=== PATIENT | female | born 1975 | race Caucasian/White ===

== ENCOUNTER 2016-05-31 13:28 | Inpatient (IN) | payer OTHER ==
[2016-05-31 15:35] VITALS: BMI 36.8
--- NOTE | 2016-05-31 17:24 | HP ---
CIWA Score - CIWA Score Nausea/Vomitin-Mild Nausea/No Vomiting Muscle Tremors: 3 Anxiety: 4-Mod. Anxious/Guarded Agitation: 4-Moderately Restless Paroxysmal Sweats: 1-Minimal Palms Moist Orientation: 0-Oriented Tacttile Disturbances: 1-Very Mild Itch/Numbness Auditory Disturbances: 2-Mild Harshness/Frighten Visual Disturbances: 3-Moderate Sensitivity Headache: 0-None Present CIWA-Ar Total Score: 19 Admission ROS S - HPI Chief Complaint: withdrawal sx Allergies/Adverse Reactions: Allergies Allergy/AdvReac Type Severity Reaction Status Date / Time No Known Allergies Allergy Verified 05/31/16 16:24 History of Present Illness: 40 years old female with long history of alcohol nicotine dependence, on suboxone maintenance program x 4 months, health underwriter called [phone] verified with pharmacist Marcello 8-2 mg III sl daily, last dose today, 2005 mitro valve replacement has asthma and depression, is admitted to detox Exam Limitations: No Limitations - Ebola screening Have you traveled outside of the country in the last 21 days: No Have you had contact with anyone from an Ebola affected area: No Have you been sick,other than usual withdrawal symptoms: No Do you have a fever: No - Review of Systems Constitutional: Chills, Changes in sleep, Weight Stable EENT: reports: No Symptoms Reported Respiratory: reports: No Symptoms reported Cardiac: reports: No Symptoms Reported GI: reports: Diarrhea, Nausea, Poor Fluid Intake, Abdominal cramping : reports: Other (2007 kidney stone) Musculoskeletal: reports: Back Pain Integumentary: reports: No Symptoms Reported Neuro: reports: Tremors Endocrine: reports: No Symptoms Reported Hematology: reports: Blood Clots (mitroval replacement 2005), Easy Bleeding ( treated with coumadine) Psychiatric: reports: Judgement Intact, Orientated x3, Depressed Other Systems: Reviewed and Negative Patient History - Patient Medical History Hx Anemia: No Hx Asthma: Yes (Pt is on MDI) Hx Chronic Obstructive Pulmonary Disease (COPD): No Hx Cancer: No Hx Cardiac Disorders: Yes (Mitral valve prolapse sx in 1995) Hx Congestive Heart Failure: No Hx Hypertension: No Hx Hypercholesterolemia: No Hx Pacemaker: No HX Cerebrovascular Accident: Yes (2 strokes in past, 2011, 2003) Hx Seizures: No Hx Dementia: No Hx Diabetes: No Hx Gastrointestinal Disorders: No Hx Liver Disease: No Hx Genitourinary Disorders: No Hx Sexually Transmitted Disorders: No Hx Renal Disease (ESRD): No Hx Thyroid Disease: No Hx Human Immunodeficiency Virus (HIV): No Hx Hepatitis C: No Hx Depression: Yes Hx Suicide Attempt: Yes (15 years old cut left wrist + over dose) Hx Bipolar Disorder: No Hx Schizophrenia: No - Patient Surgical History Past Surgical History: Yes Hx Neurologic Surgery: No Hx Cataract Extraction: No Hx Cardiac Surgery: Yes (? , mvp, SCAR VERTICAL CENTRAL ANT CHEST WALL) Hx Lung Surgery: No Hx Breast Surgery: No Hx Breast Biopsy: No Hx Abdominal Surgery: No Hx Appendectomy: No Hx Cholecystectomy: No Hx Genitourinary Surgery: No Hx Section: No Hx Orthopedic Surgery: No Hx Hysterectomy: No Anesthesia Reaction: No - PPD History Previous Implant?: Yes Documented Results: Positive w/proof Implanted On Prior [facility] Admission?: No Date: 06/18/14 PPD to be Administered?: No - Reproductive History Patient is a Female of Child Bearing Age (11 -55 yrs old): Yes Last Menstrual Period: 05/30/16 Patient : No - Smoking Cessation Smoking history: Current every day smoker Have you smoked in the past 12 months: Yes Aproximately how many cigarettes per day: 20 Cigars Per Day: 0 Hx Chewing Tobacco Use: No Initiated information on smoking cessation: Yes 'Breaking Loose' booklet given: 05/31/16 - Substance & Tx. History Hx Alcohol Use: Yes Hx Substance Use: Yes Substance Use Type: Alcohol, Heroin, Marijuana Hx Substance Use Treatment: Yes - Substances Abused Alcohol Route: Oral Frequency: Daily Amount used: 6pk beer Age of first use: 11 Date of Last Use: 05/30/16 Marijuana/Hashish Route: Smoking Frequency: Daily Amount used: $40 Age of first use: 12 Date of Last Use: 05/31/16 Heroin Route: Inhalation Frequency: Daily Amount used: 5-7 bags Age of first use: 12 Date of Last Use: 05/30/16 Family Disease History - Family Disease History Family Disease History: Diabetes: Mother Admission Physical Exam BHS - Vital Signs Vital Signs: Vital Signs - 24 hr 05/31/16 15:33 Temperature 98.2 F Pulse Rate 79 Respiratory 20 Rate Blood Pressure 108/68 - Physical General Appearance: Yes: Appropriately Dressed, Moderate Distress, Obese, Tremorous, Irritable, Sweating, Anxious HEENTM: Yes: Hearing grossly Normal, Normal ENT Inspection, Normocephalic, Normal Voice Respiratory: Yes: Chest Non-Tender, Lungs Clear, Normal Breath Sounds, No Respiratory Distress, No Accessory Muscle Use Neck: Yes: Supple, Trachea in good position Breast: Yes: Breasts Symetrical Cardiology: Yes: Regular Rhythm, Regular Rate, S1, S2 Abdominal: Yes: Non Tender, Soft Genitourinary: Yes: Within Normal Limits Back: Yes: Normal Inspection Musculoskeletal: Yes: full range of Motion, Gait Steady, Back pain, Muscle Pain , Muscle weakness (left leg) Extremities: Yes: Normal Range of Motion, Non-Tender, Tremors Neurological: Yes: Fully Oriented, Alert, Motor Strength 5/5, Normal Response, Depressed Affect Integumentary: Yes: Warm Lymphatic: Yes: Within Normal Limits - Diagnostic (1) Asthma Current Visit: Yes Status: Acute Qualifiers: Asthma severity: mild persistent Asthma complication type: with status asthmaticus Qualified Code(s): J45.32 - Mild persistent asthma with status asthmaticus (2) Nicotine dependence Current Visit: Yes Status: Acute Qualifiers: Nicotine product type: cigarettes Substance use status: in withdrawal Qualified Code(s): F17.213 - Nicotine dependence, cigarettes, with withdrawal (3) Obesity Current Visit: Yes Status: Chronic Qualifiers: Obesity type: due to excess calories Obesity severity: morbid Qualified Code(s): E66.01 - Morbid (severe) obesity due to excess calories (4) Stroke Current Visit: Yes Status: Chronic Qualifiers: CVA mechanism: thrombosis Precerebral and cerebral artery: vertebral artery, right Qualified Code(s): 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 (5) Alcohol dependence with uncomplicated withdrawal Current Visit: Yes Status: Acute (6) S/P mitral valve repair Current Visit: Yes Status: Resolved Comment: 2006 (7) Positive PPD, treated Current Visit: Yes Status: Acute Comment: chest x ray pending (8) Use of cane as ambulatory aid Current Visit: Yes Status: Acute Comment: cane s/p stroke sequela 2011 Cleared for Admission [facility] - Detox or Rehab [facility] Level of Care: Medically Managed Detox Regimen/Protocol: Librium [facility] Breath Alcohol Content Breath Alcohol Content: 0 Urine Pregancy Test - Result Urine Test Results: Negative- NO Line Present Urine Drug Screen - Results Drug Screen Negative: No Urine Drug Screen Results: THC-Marijuana, OPI-Opiates
[2016-05-31] MEDS ORDERED: chlordiazePOXIDE HCL 25 MG CAPSULE PO PRN (17:32)
[2016-05-31] MEDS ORDERED: P-EPHED 60MG/TRIPROLIDI 2.5MG TABLET PO PRN (17:32)
[2016-05-31] MEDS ORDERED: NICOTINE POLACRILEX 4 MG GUM BC PRN (17:32)
[2016-05-31] MEDS ORDERED: hydrOXYzine PAMOATE 50 MG CAPSULE (FP) PO PRN (17:32)
[2016-05-31] MEDS ORDERED: guaiFENesin/D-METHORPHAN HB 10 ML UNIT-DOSE CUPS PO PRN (17:32)
[2016-05-31] MEDS ORDERED: MAG HYDROX/AL HYDROX/SIMETH 30 ML UNIT-DOSE CUP PO PRN (17:32)
[2016-05-31] MEDS ORDERED: IBUPROFEN 400 MG TABLET (FP) PO PRN (17:32)
[2016-05-31] MEDS ORDERED: MENTHOL/PHENOL 1 EACH UD MM PRN (17:32)
[2016-05-31] MEDS ORDERED: ACETAMINOPHEN 325 MG TABLET (FP) PO PRN (17:32)
[2016-05-31] MEDS ORDERED: LOPERAMIDE HCL 2 MG CAPSULE PO PRN (17:32)
[2016-05-31] MEDS ORDERED: MAGNESIUM CITRATE 300 ML BOTTLE PO PRN (17:32)
[2016-05-31] MEDS ORDERED: MAGNESIUM HYDROX 2400MG/30ML ORAL SUSPENSION 30 ML CUP PO PRN (17:32)
[2016-05-31] MEDS ORDERED: ALBUTEROL SO4 2.5/IPRATROPIUM 0.5 INH SOL 3 ML VIAL.NEB. NEB PRN (17:39)
[2016-05-31] MEDS ORDERED: ALBUTEROL SO4 6.7 GM HFA INHALER IH PRN (17:39)
[2016-05-31] MEDS: WARFARIN NA 7.5 MG TABLET (FP) PO SCH (18:50)
[2016-05-31 22:38] LABS: URINE APPEARANCE CLEAR; URINE BILIRUBIN NEGATIVE (NEGATIVE); URINE COLOR LTYELLOW; URINE GLUCOSE (UA) NEGATIVE (NEGATIVE); URINE KETONE NEGATIVE (NEGATIVE); URINE LEUK ESTERASE NEGATIVE (NEGATIVE); URINE NITRITE NEGATIVE (NEGATIVE); URINE PROTEIN NEGATIVE (NEGATIVE); URINE UROBILINOGEN NEGATIVE E.U./dl (0.2-1.0)
[2016-05-31 22:39] LABS: URINE BLOOD 3+ (NEGATIVE)
[2016-05-31 22:40] LABS: URINE BACTERIA RARE /hpf (NONE SEEN); URINE MUCUS RARE; URINE RBC 38 /hpf (0-3); URINE WBC 4 /hpf (3-5)
[2016-05-31] MEDS: chlordiazePOXIDE HCL 25 MG CAPSULE PO SCH (22:41)
[2016-05-31] MEDS: diphenhydrAMINE HCL 50 MG CAPSULE PO PRN (22:41)
[2016-05-31] MEDS: THIAMINE HCL 100 MG TABLET (FP) PO SCH (22:41)
[2016-06-01] MEDS: chlordiazePOXIDE HCL 25 MG CAPSULE PO SCH ×4 (05:49→22:38)
[2016-06-01] MEDS: PRENATAL VITAMINS W/ FOLIC ACID TABLET (FP) PO SCH (10:12)
[2016-06-01] MEDS: BUPRENORPHINE/NALOXONE 8 MG/2 MG FILM PACKET SL SCH (10:12)
[2016-06-01] MEDS: NICOTINE 21 MG/24 HOURS TOPICAL PATCH TD SCH (10:15)
[2016-06-01 10:30] LABS: MCH 28.3 pg (25.7-33.7); MCHC 33.3 g/dl (32.0-36.0); MEAN PLT VOLUME 10.6 fl (7.5-11.1); PLATELET COUNT 201 K/MM3 (134-434); RDW 17.1 % (11.6-15.6); WHITE BLOOD COUNT 6.3 K/mm3 (4.0-10.0)
[2016-06-01 10:47] LABS: ALBUMIN 3.1 g/dl (3.4-5.0); ALK PHOS 81 U/L (45-117); ANION GAP 7 (8-16); BILIRUBIN,TOTAL 0.4 mg/dL (0.2-1.0); CALCIUM 8.7 mg/dL (8.5-10.1); CO2 29 mmol/L (21-32); CREATININE 0.8 mg/dL (0.55-1.02); GLUCOSE,RANDOM 74 mg/dL (74-106); SGOT/AST 15 U/L (15-37); SGPT/ALT 18 U/L (12-78); TOT PROT 5.9 g/dl (6.4-8.2)
--- NOTE | 2016-06-01 12:21 | CONSULT ---
[facility] Psychiatric Consult - Data Date of interview: 06/01/16 Admission source: [facility] Identifying data: Readmission to [facility] for this 40 y/o female seeking detox treatment on for alcohol,heroin and marijuana dependence.Patient is ,a mother of one,domiciled,disabled and supported on SSI benefits. Substance Abuse History: Smoking Cessation. Smoking history: Current every day smoker. Have you smoked in the past 12 months: Yes. Aproximately how many cigarettes per day: 20. Cigars Per Day: 0. Hx Chewing Tobacco Use: No. Initiated information on smoking cessation: Yes. 'Breaking Loose' booklet given : 05/31/16. - Substance & Tx. History. Hx Alcohol Use: Yes. Hx Substance Use : Yes. Substance Use Type: Alcohol, Heroin, Marijuana. Hx Substance Use Treatment: Yes. - Substances Abused. Alcohol. Route: Oral. Frequency: Daily. Amount used: 6pk beer. Age of first use: 11. Date of Last Use: . Marijuana/Hashish. Route: Smoking. Frequency: Daily. Amount used: $ 40. Age of first use: 12. Date of Last Use: 05/31/16. Heroin. Route: Inhalation. Frequency: Daily. Amount used: 5-7 bags. Age of first use: 12. Date of Last Use: 05/30/16. Confirmed by patient. Medical History: History of mitral valve replacement (2005),CVA x 2 (2003 + 2011 ) and bronchial asthma. Psychiatric History: Patient admits to a history of one psychiatric hospitalization at [facility] (1989).Diagnosis and medications used : no recall.Ms Bingham states that she does " not go to clinics." Off psychotropic medications for years (own decision).Patient reports a history of two suicide attempts,during adolescence,via overdose with pills and self- mutilation.Expresses no interest for psychiatric care.Currently on suboxone maintenance. Physical/Sexual Abuse/Trauma History: Patient denies. Additional Comment: Urine Drug Screen Results: THC-Marijuana, OPI-Opiates Mental Status Exam - Mental Status Exam Alert and Oriented to: Time, Place, Person Cognitive Function: Grossly Intact Patient Appearance: Unkempt, Disheveled (overweight) Mood: Hostile, Withdrawn, Irritable Affect: Constricted Patient Behavior: Uncooperative, Guarded, Resitive to Care Speech Pattern: Clear, Delayed Voice Loudness: Normal Thought Process: Goal Oriented Thought Disorder: Not Present Hallucinations: Denies Suicidal Ideation: Denies Homicidal Ideation: Denies Insight/Judgement: Poor Sleep: Well Appetite: Good Gait/Station: Other (walks with a cane) Psychiatric Findings - Problem List ([place] 1, 2,3) (1) Alcohol dependence with uncomplicated withdrawal Current Visit: Yes Status: Acute (2) Nicotine dependence Current Visit: Yes Status: Acute Qualifiers: Nicotine product type: cigarettes Substance use status: in withdrawal Qualified Code(s): F17.213 - Nicotine dependence, cigarettes, with withdrawal (3) Cannabis dependence Current Visit: Yes Status: Acute (4) Substance induced mood disorder Current Visit: Yes Status: Acute (5) Depressive disorder Current Visit: No Status: Chronic Comment: History. 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
--- NOTE | 2016-06-01 12:56 | PN ---
[facility] CIWA - CIWA Score Nausea/Vomitin Muscle Tremors: 3 Anxiety: 3 Agitation: 2 Paroxysmal Sweats: 1-Minimal Palms Moist Orientation: 0-Oriented Tacttile Disturbances: 1-Very Mild Itch/Numbness Auditory Disturbances: 1-Very Mild Visual Disturbances: 1-Very Mild Sensitivity Headache: 2-Mild CIWA-Ar Total Score: 17 BHS Progress Note (SOAP) Subjective: ALERT,IRRITABLE,ANXIOUS,INTERRUPTED SLEEP,TREMOR Objective: 06/01/16 12:54 Vital Signs Temperature 98.2 F 06/01/16 10:30 Pulse Rate 79 06/01/16 10:30 Respiratory Rate 18 06/01/16 10:30 Blood Pressure 119/50 06/01/16 10:30 O2 Sat by Pulse Oximetry (%) EKG NSR NO CHEST PAIN,NO SOB,NO DIZZINESS Laboratory Last Values WBC 6.3 K/mm3 (4.0-10.0) 06/01/16 07:15 RBC 4.29 M/mm3 (3.60-5.2) 06/01/16 07:15 Hgb 12.1 GM/dL (10.7-15.3) 06/01/16 07:15 Hct 36.5 % (32.4-45.2) 06/01/16 07:15 MCV 85.0 fl (80-96) 06/01/16 07:15 MCHC 33.3 g/dl (32.0-36.0) 06/01/16 07:15 RDW 17.1 % (11.6-15.6) H 06/01/16 07:15 Plt Count 201 K/MM3 (134-434) 06/01/16 07:15 MPV 10.6 fl (7.5-11.1) 06/01/16 07:15 Sodium 143 mmol/L (136-145) 06/01/16 07:15 Potassium 4.3 mmol/L (3.5-5.1) 06/01/16 07:15 Chloride 107 mmol/L (98-107) 06/01/16 07:15 Carbon Dioxide 29 mmol/L (21-32) 06/01/16 07:15 Anion Gap 7 (8-16) L 06/01/16 07:15 BUN 14 mg/dL (7-18) 06/01/16 07:15 Creatinine 0.8 mg/dL (0.55-1.02) 06/01/16 07:15 Creat Clearance w eGFR > 60 (>60) 06/01/16 07:15 Random Glucose 74 mg/dL (74-106) 06/01/16 07:15 Calcium 8.7 mg/dL (8.5-10.1) 06/01/16 07:15 Total Bilirubin 0.4 mg/dL (0.2-1.0) D 06/01/16 07:15 AST 15 U/L (15-37) 06/01/16 07:15 ALT 18 U/L (12-78) D 06/01/16 07:15 Alkaline Phosphatase 81 U/L (45-117) 06/01/16 07:15 Total Protein 5.9 g/dl (6.4-8.2) L 06/01/16 07:15 Albumin 3.1 g/dl (3.4-5.0) L 06/01/16 07:15 Urine Color Ltyellow 05/31/16 22:00 Urine Appearance Clear 05/31/16 22:00 Urine pH 5.0 (5.0-8.0) 05/31/16 22:00 Ur Specific [place] 1.013 (1.001-1.035) 05/31/16 22:00 Urine Protein Negative (NEGATIVE) 05/31/16 22:00 Urine Glucose (UA) Negative (NEGATIVE) 05/31/16 22:00 Urine Ketones Negative (NEGATIVE) 05/31/16 22:00 Urine Blood 3+ (NEGATIVE) H 05/31/16 22:00 Urine Nitrite Negative (NEGATIVE) 05/31/16 22:00 Urine Bilirubin Negative (NEGATIVE) 05/31/16 22:00 Urine Urobilinogen Negative E.U./dl (0.2-1.0) 05/31/16 22:00 Ur Leukocyte Esterase Negative (NEGATIVE) 05/31/16 22:00 Urine RBC 38 /hpf (0-3) 05/31/16 22:00 Urine WBC 4 /hpf (3-5) 05/31/16 22:00 Ur Epithelial Cells Rare /hpf (FEW) 05/31/16 22:00 Urine Bacteria Rare /hpf (NONE SEEN) 05/31/16 22:00 Urine Mucus Rare 05/31/16 22:00 RPR Titer Nonreactive (NONREACTIVE) 06/01/16 07:15 Assessment: 06/01/16 12:55 WITHDRAWAL SYMPTOM Plan: CONTINUE DETOX,REPEAT UA,INR TODAY
[2016-06-01 13:21] LABS: PLATELET COMMENT2 NO CLOTTING DETECTED; PLATELET COMMENT3 MOD LARGE PLTS; PLATELET ESTIMATE ADEQUATE (NORMAL)
--- NOTE | 2016-06-01 13:24 | EKG ---
Test Reason : Blood Pressure : / mmHG Vent. Rate : 080 BPM Atrial Rate : 080 BPM P-R Int : 184 ms QRS Dur : 076 ms QT Int : 390 ms P-R-T Axes : 053 081 071 degrees QTc Int : 449 ms NORMAL SINUS RHYTHM POSSIBLE LEFT ATRIAL ENLARGEMENT BORDERLINE ECG NO PREVIOUS ECGS AVAILABLE Confirmed by EPIFANIO SALINAS, ASA ([id number]) on 06/01/2016 1:23:31 PM Referred By: Confirmed By:ASA GODFREY MD
[2016-06-01 13:29] LABS: INR 3.8 (0.82-1.09); PROTHROMBIN TIME (PATIENT) 42.9 SEC (9.98-11.88)
[2016-06-01] MEDS: WARFARIN NA 7.5 MG TABLET (FP) PO SCH (18:41)
[2016-06-01] MEDS: THIAMINE HCL 100 MG TABLET (FP) PO SCH (22:38)
[2016-06-01] MEDS: diphenhydrAMINE HCL 50 MG CAPSULE PO PRN (22:38)
[2016-06-02] MEDS: chlordiazePOXIDE HCL 25 MG CAPSULE PO SCH ×3 (05:53→17:20)
[2016-06-02] MEDS: PRENATAL VITAMINS W/ FOLIC ACID TABLET (FP) PO SCH (10:37)
[2016-06-02] MEDS: BUPRENORPHINE/NALOXONE 8 MG/2 MG FILM PACKET SL SCH (10:37)
[2016-06-02] MEDS: NICOTINE 21 MG/24 HOURS TOPICAL PATCH TD SCH (10:40)
--- NOTE | 2016-06-02 13:24 | PN ---
S CIWA - CIWA Score Nausea/Vomitin Muscle Tremors: 3 Anxiety: 3 Agitation: 2 Paroxysmal Sweats: 1-Minimal Palms Moist Orientation: 0-Oriented Tacttile Disturbances: 1-Very Mild Itch/Numbness Auditory Disturbances: 1-Very Mild Visual Disturbances: 1-Very Mild Sensitivity Headache: 2-Mild CIWA-Ar Total Score: 17 BHS Progress Note (SOAP) Subjective: alert,irritable,anxious,interrupted sleep.tremor Objective: 06/02/16 13:21 06/02/16 13:21 Vital Signs Temperature 98.2 F 06/02/16 09:39 Pulse Rate 92 H 06/02/16 09:39 Respiratory Rate 18 06/02/16 09:39 Blood Pressure 111/57 06/02/16 09:39 O2 Sat by Pulse Oximetry (%) Laboratory Results - last 24 hr 06/01/16 06/01/16 07:15 12:00 Differential Comment Slide scanned Platelet Estimate Adequate Platelet Comment No clotting detected INR 3.80 H D history of mitral valve replacement,mechanical to hold off coumadin repeat inr in am Assessment: 06/02/16 13:23 withdrawal symptom Plan: continue detox,hold coumadin today,repeat inr in am
[2016-06-02] MEDS: WARFARIN NA 7.5 MG TABLET (FP) PO SCH (18:47)
[2016-06-02] MEDS: diphenhydrAMINE HCL 50 MG CAPSULE PO PRN (22:27)
[2016-06-02] MEDS: THIAMINE HCL 100 MG TABLET (FP) PO SCH (22:27)
[2016-06-02] MEDS: chlordiazePOXIDE 5 MG CAPSULE PO SCH (22:28)
[2016-06-03] MEDS: chlordiazePOXIDE 5 MG CAPSULE PO SCH ×3 (06:15→17:32)
[2016-06-03] MEDS: NICOTINE 21 MG/24 HOURS TOPICAL PATCH TD SCH (10:30)
[2016-06-03] MEDS: PRENATAL VITAMINS W/ FOLIC ACID TABLET (FP) PO SCH (10:30)
[2016-06-03] MEDS: BUPRENORPHINE/NALOXONE 8 MG/2 MG FILM PACKET SL SCH (10:30)
[2016-06-03 10:35] LABS: INR 2.89 (0.82-1.09); PROTHROMBIN TIME (PATIENT) 32.5 SEC (9.98-11.88)
--- NOTE | 2016-06-03 12:35 | PN ---
[facility] Progress Note (SOAP) Subjective: ALERT,IRRITABLE,INTERRUPTED SLEEP Objective: 06/03/16 12:33 Vital Signs Temperature 97.4 F L 06/03/16 10:00 Pulse Rate 84 06/03/16 10:00 Respiratory Rate 16 06/03/16 10:00 Blood Pressure 127/69 06/03/16 10:00 O2 Sat by Pulse Oximetry (%) Abnormal Lab Results 06/03/16 06:15 INR 2.89 H Assessment: 06/03/16 12:34 WITHDRAWAL SYMPTOM Plan: CONTINUE DETOX,RESUME COUMADIN 7.5 MG PO DAILY,
[2016-06-03] MEDS ORDERED: WARFARIN NA 7.5 MG TABLET (FP) PO SCH (18:00)
[2016-06-03] MEDS: chlordiazePOXIDE HCL 10 MG CAPSULE PO SCH (22:25)
[2016-06-03] MEDS: THIAMINE HCL 100 MG TABLET (FP) PO SCH (22:25)
[2016-06-03] MEDS: diphenhydrAMINE HCL 50 MG CAPSULE PO PRN (22:25)
[2016-06-04] MEDS: chlordiazePOXIDE HCL 10 MG CAPSULE PO SCH (05:33)
[2016-06-04 06:35] VITALS: BP 102/60; PULSE 67; TEMP 95.5
[2016-06-04] MEDS: BUPRENORPHINE/NALOXONE 8 MG/2 MG FILM PACKET SL SCH (09:02)
--- NOTE | 2016-06-04 09:49 | DS ---
[facility] Detox Discharge Summary Admission Date: 05/31/16 Discharge Date: 06/04/16 - History Present History: Alcohol Dependence, Cannabis Dependence, Cocaine Dependence - Physical Exam Results Vital Signs: Vital Signs Temperature 95.5 F L 06/04/16 06:00 Pulse Rate 67 06/04/16 06:00 Respiratory Rate 18 06/04/16 06:00 Blood Pressure 102/60 06/04/16 06:00 O2 Sat by Pulse Oximetry (%) - Treatment Hospital Course: Detox Protocol Followed, Detoxed Safely, Responded well, Discharged Condition Good - Medication Discharge Medications: Ambulatory Orders Albuterol Sulfate Inhaler - [Ventolin HFA Inhaler -] 2 inh PO Q4H PRN 06/16/14 Buprenorphine/Naloxone [Suboxone 8Mg/2Mg Sl Film -] 3 each SL DAILY 05/31/16 Warfarin Na [Coumadin] 7.5 mg PO HS 05/31/16 - AMA Did Patient Leave Against Medical Advice: No (but pt didn't want to wait for results of repeat inr and refused cxr, f/u c)
[2016-06-04 10:21] LABS: URINE APPEARANCE SLCLOUDY; URINE BILIRUBIN NEGATIVE (NEGATIVE); URINE COLOR RED; URINE GLUCOSE (UA) NEGATIVE (NEGATIVE); URINE KETONE NEGATIVE (NEGATIVE); URINE LEUK ESTERASE NEGATIVE (NEGATIVE); URINE NITRITE NEGATIVE (NEGATIVE); URINE UROBILINOGEN NEGATIVE E.U./dl (0.2-1.0)
[2016-06-04 10:28] LABS: INR 2.29 (0.82-1.09); PROTHROMBIN TIME (PATIENT) 25.6 SEC (9.98-11.88)
[2016-06-04 10:35] LABS: URINE BLOOD 3+ (NEGATIVE); URINE PROTEIN 2+ (NEGATIVE)
[2016-06-04 10:36] LABS: URINE WBC 4 /hpf (3-5)
[2016-06-04 10:37] LABS: URINE RBC 300 /hpf (0-3)
== END 2016-06-04 09:06 | disposition home or self-care (01) | DRG 774 ==
LOC: YASAS 13:28 → Y6N 18:02
PROVIDERS: ADMIT Internal Medicine; ATTEND Internal Medicine
PROC: HZ2ZZZZ Detoxification Services for Substance Abuse Treatment (ICD-10-PCS; principal; 2016-05-31)
DX: F10.230 Alcohol dependence with withdrawal, uncomplicated (principal); F14.20 Cocaine dependence, uncomplicated; F12.20 Cannabis dependence, uncomplicated; F17.213 Nicotine dependence, cigarettes, with withdrawal; F32.9 Major depressive disorder, single episode, unspecified; F19.24 Other psychoactive substance dependence with psychoactive substance-induced mood disorder; J45.32 Mild persistent asthma with status asthmaticus; Z79.01 Long term (current) use of anticoagulants; Z95.2 Presence of prosthetic heart valve; Z86.73 Personal history of transient ischemic attack (TIA), and cerebral infarction without residual deficits; R76.11 Nonspecific reaction to tuberculin skin test without active tuberculosis; R26.2 Difficulty in walking, not elsewhere classified; E66.01 Morbid (severe) obesity due to excess calories; Z68.36 Body mass index [BMI] 36.0-36.9, adult; Z91.5 Personal history of self-harm
CPT/HCPCS: 36415; 80053; 81003; 81015; 85027; 85610; 86593; 93005; 93010